=== PATIENT | male | born 1955 | race Native Hawaiian/Other Pacific Islander ===

== ENCOUNTER 2020-08-24 18:49 | Outpatient (CLI) | payer BC ==
[2020-08-24 22:27] LABS: PLATELET COUNT 415 K/uL (142-355)
[2020-08-24 22:51] LABS: POTASSIUM 4.3 mmol/L (3.6-5.2)
== END 2020-08-24 21:11 | disposition home or self-care (01) ==
LOC: LAB 18:49
PROVIDERS: ATTEND Nurse Practitioner Family
DX: Z00.00 Encounter for general adult medical examination without abnormal findings (principal); Z79.899 Other long term (current) drug therapy; R53.83 Other fatigue; R53.81 Other malaise; I10 Essential (primary) hypertension; E78.49 Other hyperlipidemia; D64.9 Anemia, unspecified
CPT/HCPCS: 80053; 80061; 82306; 82607; 82728; 83036; 83540; 84153; 84403; 84439; 84443; 85027